=== PATIENT | female | born 1990 | race Two or more races ===

== ENCOUNTER → 2025-02-11 | Outpatient (CLI) | payer BC, SELFPAY ==
[2025-02-11 12:20] LABS: Glucose Estimated Average 117 mg/dL (80-131); Hemoglobin A1C 5.7 % Hgb (4.8-6.0)
== END | disposition home or self-care (01) ==
PROVIDERS: PCP Family Medicine; Referring Provider Nurse Practitioner Family; Visit Provider Nurse Practitioner Family
DX: E11.65 Type 2 diabetes mellitus with hyperglycemia (principal)
CPT/HCPCS: 36415; 83036

== ENCOUNTER 2025-04-25 13:27 | Outpatient (AMB) | payer BC, SELFPAY ==
[2025-04-25 13:47] VITALS: BP 123/81; PULSE 109; RESP 18; TEMP 36.2; O2SAT 98; BMI 40.3
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
== END 2025-04-25 14:12 | disposition home or self-care (01) ==
PROVIDERS: PCP Family Medicine; Referring Provider Family Medicine; Supervising Provider Obstetrics & Gynecology; Visit Provider Obstetrics & Gynecology
DX: N92.6 Irregular menstruation, unspecified (principal); E66.01 Morbid (severe) obesity due to excess calories; Z68.41 Body mass index [BMI] 40.0-44.9, adult; E11.9 Type 2 diabetes mellitus without complications; I10 Essential (primary) hypertension; E78.00 Pure hypercholesterolemia, unspecified; J45.909 Unspecified asthma, uncomplicated
CPT/HCPCS: 99203; 99204; Q0091; G0463

== ENCOUNTER → 2025-07-17 | Outpatient (CLI) | payer BC, SELFPAY ==
--- NOTE | 2025-07-17 | XR_ITS ---
EXAMINATION: Ankle, right 3 views . Technique: Ankle AP, oblique, lateral 3 views Date and time of exam: July 17, 2025 0720 hours INDICATIONS: Injury to the ankle 5 months ago, ankle pain. FINDINGS: No ankle fracture or dislocation. Prominent osteopenia IMPRESSION: No ankle fracture or dislocation
== END | disposition home or self-care (01) ==
LOC: CDIM 06:47
PROVIDERS: PCP Family Medicine; Referring Provider Nurse Practitioner Family; Visit Provider Nurse Practitioner Family
DX: M25.571 Pain in right ankle and joints of right foot (principal); S99.911S Unspecified injury of right ankle, sequela; X58.XXXS Exposure to other specified factors, sequela
CPT/HCPCS: 73610